=== PATIENT | male | born 1955 | race Caucasian/White ===

== ENCOUNTER 2017-09-18 07:14 | Emergency (ER) | payer BC ==
[~2017-09-18] VITALS: Ht 182.9 cm; Wt 115.0 kg
[2017-09-18 07:15] VITALS: BP 157/87; PULSE 70; RESP 14; TEMP 98.4; O2SAT 99
[2017-09-18] MEDS ORDERED: IBUP1TAB7 PO (07:34)
[2017-09-18] MEDS ORDERED: CEPH-460 PO (07:34)
[2017-09-18] MEDS ORDERED: BACT800T5 PO (07:34)
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
[2017-09-18] MEDS ORDERED: BUPIVACAINE HCL PF 0.5% 10 ML VIAL INFIL ONE (07:45)
[2017-09-18] MEDS ORDERED: LIDOCAINE HCL 1% 50 ML VIAL INFIL ONE (07:45)
== END 2017-09-18 08:14 | disposition home or self-care (01) ==
LOC: NEPD 07:14
DX: L03.011 Cellulitis of right finger (principal); H57.8 Other specified disorders of eye and adnexa
CPT/HCPCS: 10060; 87070; 87185